=== PATIENT | female | born 1945 | race Two or more races ===

== ENCOUNTER 2024-03-05 20:27 | Emergency (ER) | payer OTHER ==
[~2024-03-05] VITALS: Ht 160 cm; Wt 58.2 kg
--- NOTE | 2024-03-05 21:13 | ED.PDOC ---
SOB-HPI HPI Comments HPI: Poor Historian. 78-year-old female presents to emergency department from urgent Care for evaluation of cough and congestion for the last two weeks. Cough is productive. Denies any other acute symptoms. Denies any fever for dizziness or chest pain. Patient vital signs were stable in triage. They said here for chest x-ray to rule out pneumonia. Vital signs are stable here in the ED. Vitals BP: 119/59 HR: 74 Temp: 98.7 F SPO2: 90% on room air, was placed on 2 liters here increasing sats to 94% RR: 18 Past Medcial History: HTN, HDL, DM Past Surgical History: REVIEW OF SYSTEMS: CONSTITUTIONAL: Denies acute: fever, diaphoresis, chills, HEAD: Denies acute: headache, photophobia Eyes: Denies acute: Double vision, vision loss, eye pain, eye discharge. EARS: Denies acute: tinnitus, hearing loss, ear discharge, ear pain, THROAT: Denies acute: sore throat, swelling, difficulty swallowing , pain with swallowing, change in voice. NECK: Denies acute: neck pain, neck swelling, stiff neck. HEART: Denies acute : chest pain, palpitations, LUNGS: Denies acute: SOB, wheezing, hemoptysis ABDOMEN: Denies acute: abdominal pain, Nausea, Vomiting, diarrhea, melena , hematemesis, hematochezia SKIN: Denies acute: rash, redness, lesions, itchiness. EXTREMITIES: Denies acute: calf pain, numbness, tingling, weakness, denies pain in extremity. Denies acute: Low back pain. Neuro: Denies acute: focal neurological deficit, motor or sensory focal neurological deficit, tremors, seizure like activity, confusion, dizziness, change in mental status, loss of bowel or bladder function, cauda equina like symptoms. : Denies acute: dysuria, hematuria, flank pain, increase in urinary frequency. PSYCH: Denies acute: hallucination, suicidal ideation, homicidal ideation. FEMALE: Denies acute: abnormal vaginal bleeding, foul odor, unusual discharge. PHYSICAL EXAM: General: no acute distress, awake and alert. Head: normocephalic, atraumatic. Neck: supple, trachea is midline, no swelling. Throat: Normal phonation. Eyes:, no erythema, no purulent discharge, no proptosis, no icterus. Heart: regular rate, regular rhythm, no significant murmur appreciated. Lungs: no apparent respiratory distress, Able to speak in full sentences. No wheezing, no rhonchi, no crackles. No stridors Clear to auscultation bilaterally. Abdomen: non tender to palpation, non distended, soft, no guarding, no rebound, + bowel sounds. Neuro: Awake, Alert, oriented to name, self, situation, follows commands GCS=15. Speech is normal. Skin: no petechia, no purpura, no cyanosis, non-pale, not jaundice. Lower extremities: --trace bilateral - Pitting edema no deformity, no focal swelling, no calf TTP. Makes eye contact. moves all four extremities. Ambulating in the ED independently. 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 Was a procedure done?: No Differential Dx Differential Diagnosis: Pneumonia, Respiratory Distress, URI X-Ray, Labs, Meds, VS Vital Signs Date Time Temp Pulse Resp B/P (MAP) Pulse Ox O2 Delivery O2 Flow Rate FiO2 03/05/24 21:11 98.7 74 18 119/59 (79) 94 Lab Test 03/05/24 21:39 Range/Units White Blood Count 3.9 L 4.4-10.8 10^3/uL Red Blood Count 4.30 4.0-5.20 10^6/uL Hemoglobin 12.6 12.2-16.2 g/dL Hematocrit 37.4 36.0-46.0 % Mean Corpuscular Volume 87.1 80.0-100.0 fL Mean Corpuscular Hemoglobin 29.4 28.0-32.0 pg Mean Corpuscular Hemoglobin Concent 33.8 32.0-36.0 g/dL Red Cell Distribution Width 13.9 11.8-14.3 % Platelet Count 245 140-450 10^3/uL Mean Platelet Volume 8.3 6.9-10.8 fL Neutrophils (%) (Auto) 51.4 37.0-80.0 % Lymphocytes (%) (Auto) 32.9 10.0-50.0 % Monocytes (%) (Auto) 15.0 H 0.0-12.0 % Eosinophils (%) (Auto) 0.3 0.0-7.0 % Basophils (%) (Auto) 0.4 0.0-2.0 % Neutrophils # (Auto) 2.0 1.6-8.6 10 ^3/uL Lymphocytes # (Auto) 1.3 0.4-5.4 10 ^3/uL Monocytes # (Auto) 0.6 0-1.3 10 ^3/uL Eosinophils # (Auto) 0 0-0.8 10 ^3/uL Basophils # (Auto) 0 0-0.2 10 ^3/uL Nucleated Red Blood Cells 0.1 % Sodium Level 131 L 136-145 mmol/L Potassium Level 3.8 3.5-5.1 mmol/L Chloride Level 96 L 98-107 mmol/L Carbon Dioxide Level 24 20-31 mmol/L Anion Gap 11 5-15 Blood Urea Nitrogen 30 H 9-23 mg/dL Creatinine 1.14 H 0.550-1.02 mg/dL Glomerular Filtration Rate Calc 49 >90 mL/min BUN/Creatinine Ratio 26.3 H 10.0-20.0 Serum Glucose 106 74-106 mg/dL Calcium Level 10.2 8.7-10.4 mg/dL Total Bilirubin 0.3 0.2-1.0 mg/dL Aspartate Amino Transferase (AST) 28 13-40 U/L Alanine Aminotransferase (ALT) 17 7-40 U/L Alkaline Phosphatase 94 46-116 U/L Troponin I High Sensitivity 6 </=34 ng/L B-Type Natriuretic Peptide 46.80 0-100 pg/mL Total Protein 7.1 5.7-8.2 g/dL Albumin 4.5 3.2-4.8 g/dL [facility] [id number] [facility] [address] Ph: [phone] DIAGNOSTIC IMAGING Diagnostic Imaging Report : [id number] Signed PATIENT: HEIDI MCNAMARA ACCT: [id number] UNIT: [id number] : 1945 LOC: ER ROOM / BED: / AGE / SEX: 78 / F ADM STATUS: REG ER SERVICE 12 ORDERING PHYSICIAN: PAVEL ISABEL DO PROCEDURE(s): CXRP - CHEST PORTABLE REASON: cough congestion ORDER NUMBER(s): [id number], ACCESSION NUMBER(s): [id number] CHEST RADIOGRAPH Indication: cough congestion Technique: Single frontal view of the chest was obtained Comparison: None Findings IMPRESSION: Subtle prominent interstitial and alveolar opacities in the bilateral lower lung zones which may be from atelectasis or scarring. Superimposed infectious process less likely but not completely excluded. 1. ATED BY: AHMET ENCISO DO DICTATED DATE/TIME: 03/05/242150 SIGNED BY: AHMET ENCISO DO SIGNED DATE/TIME: 03/05/242150 CC: Time of 1ST Reevaluation: 21:19 Reevaluation 1ST: Unchanged Patient Education/Counseling: Diagnosis, Treatment Family Education/Counseling: No Family Present Departure 1 Departure Time of Disposition: 22:15 Impression: Primary Impression: Bronchitis Disposition: 01 HOME / SELF CARE / HOMELESS Condition: Stable Additional Instructions: Additional discharge instructions: You MUST follow-up with your primary care/family doctor in 1 to 2 days. If you are unable to see your primary care/family doctor, please return to our emergency room for re-assessment and re-evaluation in 1 to 2 days. Return to the emergency room here in our facility or to the nearest ER [facility] if your symptoms change or worsen. CONSULTATIONS: you MUST Follow-up for consultation as soon as possible with: . cardiology and pulmonology in 1-2 days. Please call for appointment. You MUST call the consultants office yourself to make an appointment. You may need to arrange that through your insurance and/or your primary/family doctor. If you are unable to see the gift consultant in 1 to 2 days, you must return to our emergency room (or any other ER of your choice) for re-assessment and re- evaluation. Adequate fluid hydration. Below is a copy of your radiological report for follow up: [place] [address] Ph: [phone] DIAGNOSTIC IMAGING Diagnostic Imaging Report : [id number] Signed PATIENT: HEIDI MCNAMARA ACCT: [id number] UNIT: [id number] : 1945 LOC: ER ROOM / BED: / AGE / SEX: 78 / F ADM STATUS: REG ER SERVICE 12 ORDERING PHYSICIAN: PAVEL ISABEL DO PROCEDURE(s): CXRP - CHEST PORTABLE REASON: cough congestion ORDER NUMBER(s): [id number], ACCESSION NUMBER(s): [id number] CHEST RADIOGRAPH Indication: cough congestion Technique: Single frontal view of the chest was obtained Comparison: None Findings IMPRESSION: Subtle prominent interstitial and alveolar opacities in the bilateral lower lung zones which may be from atelectasis or scarring. Superimposed infectious process less likely but not completely excluded. 1. ATED BY: AHMET ENCISO DO DICTATED DATE/TIME: 03/05/242150 SIGNED BY: AHMET ENCISO DO SIGNED DATE/TIME: 03/05/242150 CC: e-Prescriptions Azithromycin (Zithromax Tri-James) 500 Mg Tab 500 MG PO DAILY for 5 Days, #5 TAB Prov: PAVEL ISABEL DO 03/05/24 Discharged With: Self Critical Care Note Critical Care Time?: No I personally scribed for PAVEL ISABEL DO ([email or web address]) on 03/05/24 at 21:20. Electronically submitted by Bren Joshua ([email or web address]). I personally scribed for PAVEL ISABEL DO ([email or web address]) on 03/05/24 at 22:00. Electronically submitted by Bren Joshua (Yowza). PAVEL ISABEL DO Mar 05, 2024 21:13
--- NOTE | 2024-03-05 21:53 | DVH ---
CHEST RADIOGRAPH Indication: cough congestion Technique: Single frontal view of the chest was obtained Comparison: None Findings IMPRESSION: Subtle prominent interstitial and alveolar opacities in the bilateral lower lung zones which may be f rom atelectasis or scarring. Superimposed infectious process less likely but not completely excluded. 1.
[2024-03-05 21:59] LABS: Basophils # (auto) 0 10 ^3/uL (0-0.2); Basophils % (auto) 0.4 % (0.0-2.0); Eosinophils # (auto) 0 10 ^3/uL (0-0.8); Eosinophils % (auto) 0.3 % (0.0-7.0); Hematocrit 37.4 % (36.0-46.0); Hemoglobin 12.6 g/dL (12.2-16.2); Lymphocytes # (auto) 1.3 10 ^3/uL (0.4-5.4); Lymphocytes % (auto) 32.9 % (10.0-50.0); Mean Corpuscular Hemoglobin 29.4 pg (28.0-32.0); Mean Corpuscular Hgb Conc. 33.8 g/dL (32.0-36.0); Mean Corpuscular Volume 87.1 fL (80.0-100.0); Monocytes # (auto) 0.6 10 ^3/uL (0-1.3); Neutrophils % (auto) 51.4 % (37.0-80.0); Nucleated Red Blood Cells % 0.1 %; Platelet Count (auto) 245 10^3/uL (140-450); Red Cell Distribution Width 13.9 % (11.8-14.3); White Blood Cell 3.9 10^3/uL (4.4-10.8)
[2024-03-05 22:15] LABS: Alanine Aminotransferase 17 U/L (7-40); Albumin 4.5 g/dL (3.2-4.8); Alkaline Phosphatase 94 U/L (46-116); Anion Gap 11 (5-15); Aspartate Aminotransferase 28 U/L (13-40); BUN/Creatinine Ratio 26.3 (10.0-20.0); Calcium 10.2 mg/dL (8.7-10.4); Carbon Dioxide 24 mmol/L (20-31); Potassium 3.8 mmol/L (3.5-5.1)
[2024-03-05 22:16] LABS: Total Protein 7.1 g/dL (5.7-8.2)
[2024-03-05 22:20] LABS: Bilirubin, Total 0.3 mg/dL (0.2-1.0); Blood Urea Nitrogen 30 mg/dL (9-23); Chloride 96 mmol/L (98-107); Glucose 106 mg/dL (74-106); Sodium 131 mmol/L (136-145)
[2024-03-05] MEDS ORDERED: AZITTAB2 PO (22:43)
[2024-03-06] MEDS: cefTRIAXone 1GM/50ML D5W 50 ML IV ONE (01:21)
[2024-03-06] MEDS: cefTRIAXone SOD 1,000 MG VL IM ONE (01:27)
[2024-03-06] MEDS: LIDOCAINE 1% HCL (LOCAL ANESTH.) INJ 20ML MDV ONE (01:27)
[2024-03-06 01:58] VITALS: BP 115/65; PULSE 78; RESP 16; TEMP 98.2; O2SAT 94
== END 2024-03-06 02:02 | disposition home or self-care (01) ==
LOC: ER 20:27
DX: J40 Bronchitis, not specified as acute or chronic (principal); I10 Essential (primary) hypertension; E11.9 Type 2 diabetes mellitus without complications; E78.5 Hyperlipidemia, unspecified
CPT/HCPCS: 36415; 71045; 80053; 83880; 84484; 85025; 96372; 99284; J0696; J2003